=== PATIENT | male | born 1950 | race Asian ===

== ENCOUNTER 2021-05-22 06:52 | Emergency (ER) | payer OTHER ==
[~2021-05-22] VITALS: Ht 152.4 cm; Wt 45.4 kg
[2021-05-22 07:03] VITALS: BP_SYST 169
--- NOTE | 2021-05-22 07:05 | NUR ---
Patient to ER bed 6 to gown for evaluation. Side rails up.
--- NOTE | 2021-05-22 07:10 | NUR ---
ER Dr. Troy at bedside examining patient.
--- NOTE | 2021-05-22 07:25 | NUR ---
assessed pt, obtained covid and influenza swab per Dr order. Pt resting comfortably in room bed down and rails up
[2021-05-22 07:41] VITALS: BP_SYST 111
--- NOTE | 2021-05-22 08:00 | NUR ---
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
--- NOTE | 2021-05-22 08:35 | NUR ---
# 20 gauge angiocath placed to left wrist. Use of asceptic technique. Opsite placed over site. Blood return noted. Blood for lab drawn from site. Flushed with 10 cc of normal saline. No evidence of infiltration noted. Patient tolerated well.
--- NOTE | 2021-05-22 08:40 | NUR ---
Pt requesting for breathing tx. Notified Dr. Troy, orders made.
[2021-05-22] MEDS: IPRATROPIUM BROM 0.5 MG/2.5 ML VIAL.NEB (ATROVENT) INH ONE (08:49)
[2021-05-22] MEDS: ALBUTEROL SULFATE 0.083% 2.5 MG/3 ML VIAL.NEB INH ONE (08:49)
[2021-05-22 08:53] LABS: BASOPHILS # (AUTO) 0.1 K/uL (0.0-0.2); BASOPHILS % (AUTO) 0.8 % (0.0-2.0); EOSINOPHILS # (AUTO) 0.4 K/uL (0.0-0.4); EOSINOPHILS % (AUTO) 3.2 % (0.0-4.0); HEMATOCRIT 39.3 % (36-54); HEMOGLOBIN 12.8 g/dL (14.0-18.0); LYMPHOCYTES # (AUTO) 1.6 K/uL (1.0-5.5); LYMPHOCYTES % (AUTO) 11.8 % (20.5-51.5); MEAN CORPUSCULAR HEMOGLOBIN 28 pg (27-31); MEAN CORPUSCULAR HGB CONC 33 % (32-36); MEAN CORPUSCULAR VOLUME 87 fL (79.0-98.0); MONOCYTES # (AUTO) 0.9 K/uL (0.0-1.0); MONOCYTES % (AUTO) 6.8 % (1.7-9.3); NEUTROPHILS # (AUTO) 10.3 K/uL (1.8-7.7); NEUTROPHILS % (AUTO) 77.4 % (40.0-70.0); PLATELET COUNT (AUTO) 233 K/uL (130-430); WHITE BLOOD COUNT (AUTO) 13.3 K/uL (4.8-10.8)
[2021-05-22] MEDS ORDERED: SITA100T11 PO (08:57)
[2021-05-22] MEDS ORDERED: AMLO5TAB4 PO (08:57)
[2021-05-22] MEDS ORDERED: LEVO50CA4 (08:57)
[2021-05-22] MEDS ORDERED: METO25TA3 PO (08:57)
[2021-05-22] MEDS ORDERED: LOVA40TA75 PO (08:57)
[2021-05-22] MEDS ORDERED: ranitidine PO (08:57)
[2021-05-22] MEDS ORDERED: LOSA100T3 PO (08:57)
[2021-05-22] MEDS ORDERED: METF-518 PO (08:57)
--- NOTE | 2021-05-22 08:57 | NUR ---
Medication reconciliation completed with information provided by patient. Any prior medication reconciliation on file was reviewed and corrected.
[2021-05-22 09:06] LABS: ANION GAP 14 (5-15); CALCIUM 9.5 mg/dL (8.4-11.0); CHLORIDE 102 mmol/L (98-107); CREATININE 1.27 mg/dL (0.55-1.30); GLUCOSE 200 mg/dL (70-99); POTASSIUM 4.7 mmol/L (3.5-5.1); SODIUM SERUM 136 mmol/L (136-145); UREA NITROGEN, BLOOD 19 mg/dL (8-21)
[2021-05-22 09:11] LABS: ALANINE AMINOTRANSFERASE 57 U/L (12-78); ALBUMIN 4.1 g/dL (3.4-4.8); ASPARTATE AMINOTRANSFERASE 56 U/L (10-37); TOTAL BILIRUBIN 0.4 mg/dL (0.0-1.0)
--- NOTE | 2021-05-22 09:15 | NUR ---
Pt states no pain or acute distress at this time. Still has cough, but no shortness of breath. No other complaints at this time.
[2021-05-22] MEDS ORDERED: PHEDM120 PO (09:59)
--- NOTE | 2021-05-22 10:49 | NUR ---
Patient given written and verbal discharge instructions and verbalizes understanding. ER MD discussed with patient the results and treatment provided. Patient in stable condition. ID arm band removed. IV catheter removed intact and dressing applied, no active bleeding. Rx of promethazine given. Patient educated on pain management and to follow up with PMD. Opportunity for questions provided and answered. Medication side effect fact sheet provided.
[2021-05-22 10:57] VITALS: BP_SYST 153
== END 2021-05-22 10:56 | disposition home or self-care (01) ==
LOC: SED 06:52
DX: J40 Bronchitis, not specified as acute or chronic (principal); Z79.899 Other long term (current) drug therapy; Z79.84 Long term (current) use of oral hypoglycemic drugs; Z20.822 Contact with and (suspected) exposure to COVID-19
CPT/HCPCS: 36415; 71045; 80053; 83605; 83880; 85025; 87426; 87804 ×2; 93005; 94640; 99285; J7613